=== PATIENT | male | born 1990 | race Caucasian/White ===

== ENCOUNTER → 2019-02-18 08:16 | Outpatient (CLI) | payer OTHER, SELFPAY ==
--- NOTE | 2019-02-18 08:33 | XR_ITS ---
PROCEDURE: XR KNEE RT 4V CLINICAL INDICATION: right knee pain, patient fell while running prior to the previous right knee study 02/14/2019 COMPARISON: XR KNEE RT 3V from 02/14/2019 FINDINGS: There has been almost complete resolution of the prominent diffuse soft tissue swelling anterior to the patella suggesting resolving prepatellar bursal effusion. The joint spaces are well-preserved. No significant degenerative/arthritic changes. No erosive changes evident. There is no fracture or loose body. Other findings:There are no pancreas some a PEG foreign bodies. IMPRESSION: Almost completely resolved soft tissue swelling anterior to the patella, no acute fracture seen Dictated by: Dr. Alec Laird MD 02/18/2019 11:20 Signed by: <Electronically signed by Dr. Alec Laird MD in [place]> 02/18/2019 11:20
== END ==
PROVIDERS: PCP Family Medicine; Visit Provider Orthopaedic Surgery
DX: S89.91XA Unspecified injury of right lower leg, initial encounter (principal); M25.561 Pain in right knee
CPT/HCPCS: 73564

== ENCOUNTER → 2020-04-19 07:38 | Outpatient (CLI) | payer OTHER, SELFPAY ==
[2020-04-19 09:02] LABS: Semen Viscosity Watery (Normal); Sperm Count 35 mil/mm3 (20-160)
[2020-04-19 09:03] LABS: Motility Quality Good Progression (Mod-Rapid); Sperm Motility 85 % (50-90)
[2020-04-19 09:49] LABS: Sperm Morphology Normal (Normal)
[2020-04-19 10:27] LABS: 3Hr Motility Quality Good Progression (Mod-Rapid); 3Hr Sperm Motility 80 % (50-60)
== END ==
PROVIDERS: Visit Provider Urology
DX: N46.9 Male infertility, unspecified (principal)
CPT/HCPCS: 89320

== ENCOUNTER 2025-03-23 16:57 | Emergency (ER) | payer BC, SELFPAY ==
[2025-03-23 17:05] VITALS: BP 139/95; PULSE 63; RESP 16; TEMP 36.6; O2SAT 99; BMI 21.9
--- NOTE | 2025-03-23 18:14 | CT_ITS ---
PROCEDURE INFORMATION: Exam: CT Cervical Spine Without Contrast Exam date and time: 03/23/2025 6:55 PM Age: 34 years old Clinical indication: Injury or trauma; Fall; Blunt trauma; Injury details: Checking shunt also. PT fell, worried the shunt got displaced. Shunt revision 2002 TECHNIQUE: Imaging protocol: Computed tomography of the cervical spine without contrast. Radiation optimization: All CT scans at this facility use at least one of these dose optimization techniques: automated exposure control; mA and/or kV adjustment per patient size (includes targeted exams where dose is matched to clinical indication); or iterative reconstruction. COMPARISON: CR Cervical spine 03/23/2025 6:29 PM FINDINGS: Bones: No evident fracture. Mild degenerative changes of the C-spine most pronounced at C5-C6 and C6-C7. Alignment and vertebral body heights are intact. Developmental incomplete closure of the posterior arch of C1 and C2. Lungs: Lung apices are normal. Soft tissues: Unremarkable. A right-sided shunt catheter is noted. Dystrophic calcifications are noted along the shunt catheter. Visualized shunt otherwise intact. IMPRESSION: Degenerative changes. No acute abnormality.
--- NOTE | 2025-03-23 18:14 | CT_ITS ---
PROCEDURE INFORMATION: Exam: CT Head Without Contrast Exam date and time: 03/23/2025 6:53 PM Age: 34 years old Clinical indication: Injury or trauma; Fall; Blunt trauma (contusions or hematomas); Injury details: Checking shunt also. PT fell, worried the shunt got displaced. Shunt revision 2002 TECHNIQUE: Imaging protocol: Computed tomography of the head without contrast. Radiation optimization: All CT scans at this facility use at least one of these dose optimization techniques: automated exposure control; mA and/or kV adjustment per patient size (includes targeted exams where dose is matched to clinical indication); or iterative reconstruction. COMPARISON: CR Skull routine 03/23/2025 6:27 PM FINDINGS: Tubes, catheters and devices: A right-sided INSOLE TACKER shunt catheter is noted extending from the occipital bone region to the midline with the tip terminating in the area of the 3rd ventricle. The visualized portions of the shunt appear intact. Brain: Normal. No hemorrhage. Unremarkable white matter. No mass effect. Cerebral ventricles: No ventriculomegaly. Paranasal sinuses: Mucous retention cyst right maxillary sinus. Mastoid air cells: Visualized mastoid air cells are well aerated. Bones: Unremarkable. No acute fracture. Soft tissues: Unremarkable. IMPRESSION: No acute intracranial abnormalities. Shunt catheter tip appears to terminate in the 3rd ventricle region without evident hydrocephalus. The shunt catheter appears intact but I can not assess for stability of position of the shunt or the ventricular size as we have no previous studies for comparison.
--- NOTE | 2025-03-23 18:23 | ED_ITS ---
<Statement entered by David Cortes MD - 03/24/25 02:18> I was consulted by the BLAYNE, and we discussed the complexity of the problems being addressed. I approve the treatment and management plan for this patient's care in the emergency department, thus performing a substantive portion of the medical decision making. David Cortes MD Discharge Plan Disposition Patient Disposition: Home, Self-Care Prescriptions Prescriptions: No Action No Known Home Medications Referrals Follow up/Referrals: Mary Dunham MD [Primary Care Provider, Medical] - See instructions Activity Restrictions/Add. Instructions Additional Instructions/Restrictions: If you have any problems or concerns please return to the ED Clinical Impressions Clinical Impression: Head injury Instructions Patient Instructions: Head Injury (Alternative Therapy) Print Language Print Language: Occitan Discharge ED Provider: David Cortes General Adult HPI General Chief complaint: Head Injury Stated complaint: AO 03/23/25, fell, hit back of head Time Seen by Provider: 03/23/25 18:05 Mode of Arrival: Ambulatory Source of Information: Patient Description of Symptoms (Recalled from ER Triage Doc. by RN): Patient states he fell yesterday around 1530 while at work, landed on the back of his head and hit it on some grass. Patient states he has a shunt for hydrocephalus and is feeling a lot of pressure Patient states that he sees neurosurgery at for this and last revision of shunt was in 2002. History of Present Illness HPI narrative: 34-year-old male presents to the ED today for complaint of falling yesterday while working. He slipped and fell on some water and hit the back of his head. He has a GENERAL WAREHOUSE ASSOCIATE shunt and says he feels pressure in the back of his head and neck. He feels fatigued but no vision loss no nausea or vomiting. No other symptoms. Related Data Home Medications ?Medication ?Instructions ?Recorded ?Confirmed No Known Home Medications 03/04/1903/29 Allergies Allergy/AdvReac Type Severity Reaction Status Date / Time No Known Allergies Allergy Verified 03/23/25 17:08 [facility] Disclaimer: The information contained in this section may have been updated after the patient was seen, as this information can be updated by other users. Social History Smoking Status: Never smoker alcohol intake: never substance use type: denies use current occupational status: employed Travel in the last 8 weeks?: None household members: family housing: house Have you lived/traveled outside [place] in past 30 days?: No Contact w/someone who lives/traveled outside [place] past 30 days?: No Exposure to someone with infectious disease in past 14 days?: No Do you have a fever (greater than 100.4 F or 38 C)?: No Have you tested positive for COVID-19?: No Exposed to someone with COVID-19 in past 14 days?: No Do you have a sore throat?: No Do you have a cough?: No Do you have any weakness?: No Do you have any diarrhea?: No Are you experiencing any unusual bleeding?: No Do you have any muscle aches/pain?: No Do you have any abdominal pain?: No Are you experiencing loss of taste or smell?: No Other Medical History Have you received the Pneumonia Vaccine: No ROS Obtained: Yes Systems reviewed as appropriate & no additional complaints except as documented Constitutional Constitutional: Reports as per HPI Physical Exam General General appearance: alert and in no apparent distress Head Head exam: atraumatic and normocephalic Eye Eye exam: Present normal appearance, PERRL and EOMI ENT ENT exam: Present normal oropharynx and mucous membranes moist Neck Neck exam: Present full ROM and trachea midline Respiratory Respiratory exam: Present normal lung sounds bilaterally Cardiovascular Cardiovascular exam: Present regular rate, normal rhythm, normal heart sounds, + S1 and +S2 Abdominal Exam Abdominal exam: Present soft and normal bowel sounds Extremities Exam Extremities exam: Present normal inspection, full ROM and normal capillary refill Back Exam Back exam: Present normal inspection Neurological Exam Neurological exam: Present alert and oriented X3 Skin Skin exam: Present warm, dry and intact Medical Decision Making Medical Records Screening: Per USPSTF and CDC recommendations, given the prevalence of disease in our [place], it is our hospital?s policy to screen for HIV and viral Hepatitis for all patients aged 18 and over and those with ongoing risk factors. Garfield Inquiry Pt receiving controlled substance: No Garfield was queried for this patient: No Vital Signs: 03/23/25 17:05 03/23/25 18:57 03/23/25 19:08 Temperature 97.8 F Temperature Source Oral Pulse Rate 70 64 Pulse Rate [Right Brachial] 63 Respiratory Rate 16 Blood Pressure 143/86 H 129/80 Blood Pressure [Right Arm] 139/95 H Blood Pressure Mean 105 96 Blood Pressure Mean [Right Arm] 109 Blood Pressure Source Blood Pressure Source [Right Arm] Automatic Cuff Blood Pressure Position Blood Pressure Position [Right Arm] Sitting 02 Sat by Pulse Oximetry 99 98 99 Oxygen Delivery Method Room Air 03/23/25 19:41 03/23/25 21:02 Temperature 98.0 F Temperature Source Oral Pulse Rate 68 60 Pulse Rate [Right Brachial] Respiratory Rate 15 Blood Pressure 128/81 121/77 Blood Pressure [Right Arm] Blood Pressure Mean 96 Blood Pressure Mean [Right Arm] Blood Pressure Source Automatic Cuff Blood Pressure Source [Right Arm] Blood Pressure Position Sitting Blood Pressure Position [Right Arm] 02 Sat by Pulse Oximetry 100 Oxygen Delivery Method Room Air Orders (Tests/Meds): ORDERS Category Date Time Status CT cervical spine wo con Stat Cat Scan 03/23/25 18:[address] head/brain wo con Stat Cat Scan 03/23/25 18:14 Completed C-spine XR 2 views [XR cervical spine 2V] Stat Exams 03/23/25 18:30 Completed Chest XR 2 view (NOT portable) [XR chest 2V] Stat Exams 03/23/25 18:25 Completed XR abdomen min 2V Stat Exams 03/23/25 18:25 Completed XR skull <4V Stat Exams 03/23/25 18:25 Completed Medical Decision Narrative: patient is a 34-year-old male presenting to the emergency department for evaluation of his GENERAL WAREHOUSE ASSOCIATE shunt after a fall. Patient is hemodynamically stable and nontoxic-appearing upon arrival, afebrile. Differential diagnosis includes displacement of a GENERAL WAREHOUSE ASSOCIATE shunt. Workup will be conducted with hematologic labs, specific imaging. The x-rays and CT and cervical spine films All showed that the shunt was in the correct place. Patient has no symptoms. Patient is safe for discharge home. Critical Care Critical Care Time Critical Care Time: No
--- NOTE | 2025-03-23 18:25 | XR_ITS ---
PROCEDURE INFORMATION: Exam: XR Abdomen Exam date and time: 03/23/2025 6:34 PM Age: 34 years old Clinical indication: Other: Shunt check; Checking shunt. PT fell, worried the shunt got displaced. Shunt revision 2002; Additional info: Ap and lat for vp global marketing solutions shunt TECHNIQUE: Imaging protocol: Radiologic exam of the abdomen. Views: 2 Views. Upright and supine views. COMPARISON: CR Chest 03/23/2025 6:32 PM FINDINGS: Tubes, catheters and devices: WHEEL INSPECTOR shunt tubing is continuous from the right thoracic soft tissues, and projects to the abdominal soft tissues and is coiled within the pelvis. Gastrointestinal tract: Normal. No bowel dilation. Intraperitoneal space: Normal. No free air. Bones/joints: Unremarkable for age. IMPRESSION: WHEEL INSPECTOR shunt tubing is continuous from the right thoracic soft tissues, and projects to the abdominal soft tissues and is coiled within the pelvis.
--- NOTE | 2025-03-23 18:25 | XR_ITS ---
PROCEDURE INFORMATION: Exam: XR Skull Exam date and time: 03/23/2025 6:27 PM Age: 34 years old Clinical indication: Injury or trauma; Fall; Other: Checking shunt; Additional info: Ap lat skull/cervical spine combined TECHNIQUE: Imaging protocol: XR of the skull. Views: Less than 4 views. COMPARISON: CR XR SKULL <4V 03/23/2025 6:27 PM FINDINGS: Tubes, catheters and devices: GAUGER CHIEF shunt tubing overlies the right cranium and cervical soft tissues with tubing appearing intact. Paranasal sinuses: Well aerated. Bones/joints: No evidence of acute osseous abnormality. Soft tissues: Unremarkable. IMPRESSION: 1. GAUGER CHIEF shunt tubing overlies the right cranium and cervical soft tissues with tubing appearing intact. 2. No evidence of acute osseous abnormality.
--- NOTE | 2025-03-23 18:25 | XR_ITS ---
PROCEDURE INFORMATION: Exam: XR Chest Exam date and time: 03/23/2025 6:32 PM Age: 34 years old Clinical indication: Injury or trauma; Fall; Other: Shunt check; Injury details: Checking shunt. PT fell, worried the shunt got displaced. Shunt revision 2002; Additional info: Combination Machine Tender shunt TECHNIQUE: Imaging protocol: Radiologic exam of the chest. Views: 2 views. COMPARISON: CR XR CHEST 2V 03/23/2025 6:32 PM FINDINGS: Tubes, catheters and devices: SAFETY GROOVING MACHINE OPERATOR shunt tubing appears continuous from the right cervical soft tissues, overlying the right thoracic soft tissues to the abdomen. Lungs: Unremarkable. No consolidation. Pleural spaces: Unremarkable. No pleural effusion. No pneumothorax. Heart/Mediastinum: Unremarkable. No cardiomegaly. Bones/joints: Unremarkable. IMPRESSION: SAFETY GROOVING MACHINE OPERATOR shunt tubing appears continuous from the right cervical soft tissues, overlying the right thoracic soft tissues to the abdomen.
--- NOTE | 2025-03-23 18:30 | XR_ITS ---
PROCEDURE INFORMATION: Exam: XR Cervical Spine Exam date and time: 03/23/2025 6:29 PM Age: 34 years old Clinical indication: Pain; Checking shunt. PT fell, worried the shunt got displaced. Shunt revision 2002; Additional info: Doubling Machine Operator shunt TECHNIQUE: Imaging protocol: Radiologic exam of the cervical spine. Views: 2 or 3 views. COMPARISON: CR XR CERVICAL SPINE 2V 03/23/2025 6:29 PM FINDINGS: Tubes, catheters and devices: LEAD REFINERY SUPERVISOR shunt tubing overlies the right cervical soft tissues in appears intact. Bones/joints: Mild loss of intervertebral disc space with degenerative changes involving C5-C6. Soft tissues: Unremarkable. IMPRESSION: LEAD REFINERY SUPERVISOR shunt tubing overlies the right cervical soft tissues in appears intact.
[2025-03-23 18:57] VITALS: BP 143/86; PULSE 70; O2SAT 98
[2025-03-23 19:08] VITALS: BP 129/80; PULSE 64; O2SAT 99
[2025-03-23 19:41] VITALS: BP 128/81; PULSE 68; O2SAT 100
[2025-03-23 21:02] VITALS: BP 121/77; PULSE 60; RESP 15; TEMP 36.7; O2SAT 98
== END 2025-03-23 21:05 | disposition home or self-care (01) ==
PROVIDERS: Emergency Provider Student in an Organized Health Care Education/Training Program; PCP Family Medicine
DX: S09.90XA Unspecified injury of head, initial encounter (principal); Z98.2 Presence of cerebrospinal fluid drainage device; W01.10XA Fall on same level from slipping, tripping and stumbling with subsequent striking against unspecified object, initial encounter
CPT/HCPCS: 70250; 70450; 71046; 72040; 72125; 74019; 99284; 99285